=== PATIENT | female | born 1940 | race Asian ===

== ENCOUNTER 2017-01-21 19:25 | Inpatient (IN) | payer SELFPAY ==
--- NOTE | 2017-01-21 19:50 | CPEKG ---
Heart Rate: 103 RR Interval: 583 P-R Interval: 172 QRSD Interval: 130 QT Interval: 380 QTC Interval: 498 P [place]: 70 QRS [place]: -43 T Wave [place]: 102 EKG Severity - ABNORMAL ECG - EKG Impression: SINUS TACHYCARDIA EKG Impression: LEFT BUNDLE BRANCH BLOCK Electronically Signed By: Fern Mckeon 21-Jan-2017 21:54:57
--- NOTE | 2017-01-21 19:54 | EDPHY ---
H & P Stated Complaint: N/V/D and fever for 3 days Time Seen by Provider: 01/21/17 19:45 HPI/ROS: CHIEF COMPLAINT: Vomiting and shortness of breath Limitations: Speaks [place] only HISTORY OF PRESENT ILLNESS: This patient is an anticoagulated (Plavix) 76 y/o female arriving with her family complaining of cough, vomiting, and weakness onset three days ago. She is visiting from [facility] and arrived one week ago. 3 days ago, she initially complained of chest discomfort, SOB and fever, and began breathing rapidly and shallowly. She subsequently developed a cough. Today, she has been vomiting and has reduced oral intake, and is unable to keep down fluids such as Boost or Gatorade. She has been too weak to do any regular activities including sit up unassisted, which is unusual for her. She endorses muscle aches. She is taking Plavix, but she does not know why she is taking Plavix. No black or bloody stools, abdominal pain, diarrhea, urinary complaints, or other associated symptoms. Her family notes she has had pneumonia in the past. HPI primarily obtained from family members translating at bedside. REVIEW OF SYSTEMS: A 10 point review of systems was performed and is negative with the exception of the elements mentioned in the history of present illness - Medical/Surgical History PMH: 1. Diabetes mellitus 2. Hypertension - Social History Additional Social History: Visiting from [facility]. Family at bedside. - Physical Exam Exam: General Appearance: Pale, ill-appearing Eyes: Pupils equal and round, no conjunctival pallor or injection ENT, Mouth: Mucous membranes moist Neck: Normal inspection Respiratory: Lungs are clear to auscultation Cardiovascular: Tachycardic Gastrointestinal: Abdomen is soft and non- tender Neurological: A&O, nonfocal, normal gait Skin: Warm and dry, no rash Extremities: Nontender, no pedal edema Psychiatric: Mood and affect normal Constitutional: Initial Vital Signs Heart Rate 110 H 01/21/17 19:32 Respiratory Rate 20 01/21/17 19:32 Blood Pressure 133/54 H 01/21/17 19:32 O2 Sat (%) 63 L 01/21/17 19:32 O2 Delivery Mode Oxymizer O2 (L/minute) 10 Allergies/Adverse Reactions: No Known Allergies Allergy (Unverified 01/21/17 19:46) Home Medications: Medication Instructions Recorded Amlodipine Besylate [Norvasc] 5 mg PO DAILY 01/21/17 Clopidogrel Bisulfate [Clopidogrel] 75 mg PO DAILY 01/21/17 Losartan Potassium [Cozaar 50 mg 50 mg PO DAILY 01/21/17 (*)] Pantoprazole Sodium [Protonix 40mg 40 mg PO DAILY 01/21/17 (*)] Vitamin B Complex [B Complex] 1 each PO DAILY 01/21/17 metFORMIN HCL [Glucophage 850 mg 850 mg PO BIDMEAL 01/21/17 (*)] Medical Decision Making - Diagnostics EKG Interpretation: EKG interpreted by me reveals sinus tachycardia, rate 103, no ST/T changes. Imaging Results: Imaging Impressions Chest X-Ray 01/21/17 19:54 Impression: 1. Findings consistent with congestive heart failure/pulmonary edema. 2. Bilateral alveolar opacities are presumably cardiogenic in origin although superimposed pneumonia cannot be excluded. Chest/Thorax CTA 01/21/17 21:01 Impression: 1. No evidence of pulmonary embolic disease. 2. Findings consistent with congestive heart failure/pulmonary edema are noted. 3. Suspect underlying emphysema. 4. See above report for additional findings. Results called and discussed with Dr. Fern Mckeon on January 21, 2017 at 2227 hours. ED Course/Re-evaluation: 76 y/o female presents with 3 day history of weakness, vomiting, and cough. SpO2 63% on room air on arrival. Oxygen saturation in the mid 90s on 4 L by nasal cannula. Concerning for pneumonia versus pulmonary embolism. Hemoglobin critically low at 5.6. Rectal exam performed and reveals no yesy blood. The patient will require blood transfusion. Given her severe hypoxia, hemoglobin of 5 and the critical nature of her illness, I decided to give her O negative blood. Family was informed of the risks and benefits of this decision. lactate 4.9. Given likely pneumonia, IVF initated for septic shock. However, Chest x-ray independently reviewed by me reveals cardiomegaly and increased pulmonary vasculature versus diffuse pneumonia. IVF held, and ECHO ordered. Echocardiogram reveals normal LV function, moderate to severe MR and increased right heart pressure. Concerning for pulmonary embolism. CT pulmonary angiogram ordered. At this time, the D-dimer also returned markedly elevated at 8.3. CT pulmonary angiogram read by Dr. Palacios reveals pulmonary edema and cardiomegaly. No evidence of pulmonary embolism. Lasix 20 mg IV and nitro paste 1 inch applied. Troponin elevated, c/w ACS, likely occurred 3 days ago, given clinical history. ASA given. The patient looks and feels much better after the 1st unit of packed red blood cells. Unclear etiology of severe anemia , query whether severe anemia precipitated pulmonary edema and acute coronary syndrome. Also unclear if the mitral regurgitation is new or old. No old medical records available. Repeat hematocrit is pending. 21:[address] Tong, hospitalist. He accepts admission to the ICU. Differential Diagnosis: Differential diagnosis includes does not limited to septic shock, pneumonia, pulmonary embolism, pneumothorax, hemorrhagic shock, GI bleed. Critical Care Time: I spent a total of 45 minutes of critical care time in obtaining history, performing a physical exam, bedside monitoring of interventions, collecting and interpreting tests and discussion with consultants but not including time spent performing procedures. Organ at risk: Cardiac - Data Points Laboratory Results: Laboratory Results 01/21/17 19:46 01/21/17 19:46 01/21/17 01/21/17 01/21/17 20:50 20:20 19:46 WBC RBC Hgb Hct MCV MCH MCHC RDW Plt Count MPV Neut % (Auto) Lymph % (Auto) Morrison % (Auto) Eos % (Auto) Baso % (Auto) Nucleat RBC Rel Count Absolute Neuts (auto) Absolute Lymphs (auto) Absolute Monos (auto) Absolute Eos (auto) Absolute Basos (auto) Absolute Nucleated RBC Immature Gran % Seg Neutrophils % Band Neutrophils % Lymphocytes % Metamyelocytes % Immature Gran # Absolute Seg Neuts Absolute Band Neuts Absolute Lymphocytes Absolute Metamyelocyte Nucleated RBCs Platelet Estimate Hypochromasia Microcytic Cells Tear Drop Cells Oval Macrocytes Smear Review By D-Dimer VBG Lactic Acid Sodium Potassium Chloride Carbon Dioxide Anion Gap BUN Creatinine Estimated GFR Glucose Calcium NT-Pro-B Natriuret Pep 62694 pg/mL H pg/mL (0-450) Stool Occult Bld Scrn NEGATIVE (NEGATIVE) Patient ABO/Rh O POSITIVE Antibody Screen NEGATIVE Crossmatch IS Only See Detail 01/21/17 01/21/17 01/21/17 19:46 19:46 19:46 WBC 14.14 10^3/uL H 10^3/uL (3.80-9.50) RBC 1.82 10^6/uL L 10^6/uL (4.18-5.33) Hgb 5.6 g/dL L* g/dL (12.6-16.3) Hct 18.3 % L % (38.0-47.0) MCV 100.5 fL H fL (81.5-99.8) MCH 30.8 pg pg (27.9-34.1) MCHC 30.6 g/dL L g/dL (32.4-36.7) RDW 19.5 % H % (11.5-15.2) Plt Count 86 10^3/uL L 10^3/uL (150-400) MPV 12.0 fL H fL (8.7-11.7) Neut % (Auto) Not Reported Lymph % (Auto) Not Reported Morrison % (Auto) Not Reported Eos % (Auto) Not Reported Baso % (Auto) Not Reported Nucleat RBC Rel Count 4.2 % H % (0.0-0.2) Absolute Neuts (auto) Not Reported Absolute Lymphs (auto) Not Reported Absolute Monos (auto) Not Reported Absolute Eos (auto) Not Reported Absolute Basos (auto) Not Reported Absolute Nucleated RBC 0.59 10^3/uL H 10^3/uL (0-0.01) Immature Gran % Not Reported Seg Neutrophils % 79 % % Band Neutrophils % 10 % % Lymphocytes % 10 % % Metamyelocytes % 1 % % Immature Gran # Not Reported Absolute Seg Neuts 11.17 10^/uL H 10^/uL (1.70-6.50) Absolute Band Neuts 1.41 10^3/uL H 10^3/uL (0.00-0.70) Absolute Lymphocytes 1.41 10^3/uL 10^3/uL (1.00-3.00) Absolute Metamyelocyte 0.14 10^3/mL H 10^3/mL (0.00-0.00) Nucleated RBCs 5 /100 WBC H /100 WBC (0-0) Platelet Estimate DECREASED L (ADEQ) Hypochromasia 2+ H Microcytic Cells 2+ H Tear Drop Cells 1+ H Oval Macrocytes 1+ H Smear Review By Pending D-Dimer 8.30 ug/mLFEU H ug/mLFEU (0.00-0.50) VBG Lactic Acid Sodium 140 mEq/L mEq/L (134-144) Potassium 4.7 mEq/L mEq/L (3.5-5.2) Chloride 109 mEq/L mEq/L (97-110) Carbon Dioxide 14 mEq/l L mEq/l (22-31) Anion Gap 17 mEq/L H mEq/L (8-16) BUN 28 mg/dL H mg/dL (7-23) Creatinine 1.3 mg/dL H mg/dL (0.6-1.0) Estimated GFR 40 Glucose 111 mg/dL H mg/dL (70-100) Calcium 9.7 mg/dL mg/dL (8.5-10.4) NT-Pro-B Natriuret Pep Stool Occult Bld Scrn Patient ABO/Rh Antibody Screen Crossmatch IS Only 01/21/17 19:46 WBC RBC Hgb Hct MCV MCH MCHC RDW Plt Count MPV Neut % (Auto) Lymph % (Auto) Morrison % (Auto) Eos % (Auto) Baso % (Auto) Nucleat RBC Rel Count Absolute Neuts (auto) Absolute Lymphs (auto) Absolute Monos (auto) Absolute Eos (auto) Absolute Basos (auto) Absolute Nucleated RBC Immature Gran % Seg Neutrophils % Band Neutrophils % Lymphocytes % Metamyelocytes % Immature Gran # Absolute Seg Neuts Absolute Band Neuts Absolute Lymphocytes Absolute Metamyelocyte Nucleated RBCs Platelet Estimate Hypochromasia Microcytic Cells Tear Drop Cells Oval Macrocytes Smear Review By D-Dimer VBG Lactic Acid 4.9 mmol/L H mmol/L (0.7-2.1) Sodium Potassium Chloride Carbon Dioxide Anion Gap BUN Creatinine Estimated GFR Glucose Calcium NT-Pro-B Natriuret Pep Stool Occult Bld Scrn Patient ABO/Rh Antibody Screen Crossmatch IS Only Medications Given: Discontinued Medications Sodium Chloride (Ns) 1,000 mls @ 0 mls/hr IV ONCE ONE; Wide Open PRN Reason: Protocol Stop: 01/21/17 19:56 Last Admin: 01/21/17 20:08 Dose: 1,000 mls Sodium Chloride (Ns) 2,000 mls @ 4,000 mls/hr 30 ml/kg infuse over 30 min ( 2000 ml) IV EDNOW ONE PRN Reason: Protocol Stop: 01/21/17 20:40 Last Admin: 01/21/17 20:33 Dose: 2,000 mls Ondansetron HCl (Zofran) 4 mg IVP EDNOW ONE Stop: 01/21/17 19:56 Last Admin: 01/21/17 20:08 Dose: 4 mg Departure - Departure Disposition: [facility] Inpatient Acute Clinical Impression: Severe mitral regurgitation, Severe anemia Pulmonary edema Qualifiers: Chronicity: acute Qualified Code(s): J81.0 - Acute pulmonary edema Condition: Serious Report Scribed for: Fern Mckeon Report Scribed by: Lindsay Cochran Date of Report: 01/21/17 Time of Report: 20:00 Physician Review and Approval Statement: 01/21/17 20:00 Portions of this note were transcribed by a medical dermatologist. I personally performed a history, physical exam, medical decision making, and confirmed accuracy of information the transcribed note.
[2017-01-21] MEDS ORDERED: NS 1,000 ML IV ONE (19:55)
[2017-01-21] MEDS ORDERED: ONDANSETRON 4 MG/2 ML VIAL IVP ONE (19:55)
[2017-01-21 20:01] LABS: ABSOLUTE NRBC COUNT 0.59 10^3/uL (0-0.01); ADD DIFF? YES; ADD MORPH? YES; ATYPICAL LYMPHOCYTE FLAG 60 (0-99); FRAGMENT RBC FLAG 40 (0-99); HEMATOCRIT 18.3 % (38.0-47.0); LIPEMIA HEMOLYSIS FLAG 80 (0-99); MEAN CELL HEMOGLOBIN 30.8 pg (27.9-34.1); MEAN CELL HEMOGLOBIN CONCENTR. 30.6 g/dL (32.4-36.7); MEAN CELL VOLUME 100.5 fL (81.5-99.8); PLATELET CLUMPS FLAG 0 (0-99); PLATELET COUNT 86 10^3/uL (150-400); RED BLOOD CELL COUNT 1.82 10^6/uL (4.18-5.33); RED CELL DISTRIBUTION WIDTH 19.5 % (11.5-15.2)
[2017-01-21 20:06] LABS: LEFT SHIFT FLG 160 (0-99); NRBC-AUTO% 4.2 % (0.0-0.2)
[2017-01-21 20:07] LABS: ADD SCAN? NO; HEMOGLOBIN 5.6 g/dL (12.6-16.3)
[2017-01-21] MEDS ORDERED: NS 2,000 ML IV ONE (20:11)
[2017-01-21 20:14] LABS: ANION GAP 17 mEq/L (8-16); CALCIUM 9.7 mg/dL (8.5-10.4); CARBON DIOXIDE 14 mEq/l (22-31); CHLORIDE 109 mEq/L (97-110); CREATININE 1.3 mg/dL (0.6-1.0); GLOMERULAR FILTRATION RATE 40; GLUCOSE 111 mg/dL (70-100); POTASSIUM 4.7 mEq/L (3.5-5.2); SODIUM 140 mEq/L (134-144)
[2017-01-21 20:57] LABS: LACGHOST ORDER
[2017-01-21] MEDS ORDERED: IOPAMIDOL (ISOVUE 370) 100 ML BTL IV ONE (21:05)
[2017-01-21 21:06] LABS: HYPOCHROMIA 2+; MACROCYTES 1+; MICROCYTES 2+; PLATELET ESTIMATE DECREASED (ADEQ)
[2017-01-21 22:32] LABS: TROPONIN I 0.167 ng/mL (0.000-0.034)
[2017-01-21] MEDS ORDERED: FUROSEMIDE 20 MG/2 ML VIAL IVP ONE (22:34)
[2017-01-21] MEDS ORDERED: NITROGLYCERIN 2% 1 GM PACKET TP ONE (22:35)
[2017-01-21] MEDS ORDERED: ASPIRIN 81 MG CHEWABLE TAB PO ONE (22:42)
[2017-01-21 23:08] LABS: HEMATOCRIT 19.9 % (38.0-47.0); MEAN CELL HEMOGLOBIN 30.7 pg (27.9-34.1); MEAN CELL HEMOGLOBIN CONCENTR. 31.2 g/dL (32.4-36.7); MEAN CELL VOLUME 98.5 fL (81.5-99.8); RED BLOOD CELL COUNT 2.02 10^6/uL (4.18-5.33); RED CELL DISTRIBUTION WIDTH 17.9 % (11.5-15.2)
[2017-01-21 23:10] LABS: HEMOGLOBIN 6.2 g/dL (12.6-16.3)
[2017-01-22] MEDS ORDERED: ACETAMINOPHEN 650 MG SUPP PR PRN (00:16)
[2017-01-22] MEDS ORDERED: ONDANSETRON 4 MG/2 ML VIAL IVP PRN (00:16)
[2017-01-22] MEDS ORDERED: ALBUTEROL 3 ML DEYVIAL IH PRN (00:16)
--- NOTE | 2017-01-22 00:20 | CPEKG ---
Heart Rate: 94 RR Interval: 638 P-R Interval: 192 QRSD Interval: 134 QT Interval: 400 QTC Interval: 501 P [place]: 77 QRS [place]: -52 T Wave [place]: 90 EKG Severity - ABNORMAL ECG - EKG Impression: SINUS RHYTHM EKG Impression: LBBB Electronically Signed By: Reji Brown 22-Jan-2017 10:35:28
[2017-01-22] MEDS ORDERED: NITROGLYCERIN 0.4 MG BTL SL PRN (00:24)
[2017-01-22] MEDS: PANTOPRAZOLE SODIUM 40 MG in NS 100 ML IV SCH ×3 (00:43→21:04)
[2017-01-22 01:34] LABS: COLOR YELLOW; LEUKOCYTE ESTERASE,URINE NEGATIVE (NEGATIVE); NITRITE,URINE NEGATIVE (NEGATIVE)
[2017-01-22] MEDS ORDERED: FUROSEMIDE 20 MG/2 ML VIAL IV ONE (02:15)
--- NOTE | 2017-01-22 02:33 | GHP ---
[f rep st] HISTORY AND PHYSICAL DATE OF ADMISSION: 01/21/2017 SOURCE: Patient is able to provide most of the history. Majority is obtained by discussing with the patient's surrounding family members at bedside, as the patient is primarily Albanian-speaking, but does understand some Czech. CHIEF COMPLAINT: Fevers, cough, vomiting, and shortness of breath. HISTORY OF PRESENT ILLNESS: A very pleasant 76-year-old female with past medical history significant for GERD with remote history of peptic ulcer disease , hypertension, diabetes type 2, who presents to the emergency department today with multiple complaints. Primarily, 3-day history of fevers, cough, and vomiting. Patient arrived with multiple family members from [facility] to visit some local family in [place]. Approximately 3 days ago, the patient and her family went up into altitude over 8000 feet. At that time of their visit, patient started to complain of some left-sided chest pressure with radiation to her left arm. She also had noted increased work of breathing and complaints of some shortness of breath. She also developed fever, cough with vomiting. The patient had not noted to her family members regarding the change in stool color , but she states that 3 days ago, she did have black-colored stools. In the last few days, within her emesis, the patient's granddaughter noted that she did see some small areas of coffee-grounds mixed in with mucus and emesis. She had no yesy hematemesis or bright red blood per rectum. The patient has had persistent shortness of breath. No lower extremity swelling. No orthopnea. Cough has been nonproductive. The patient does complain of some sore throat to include more like water brash type sensation and GERD. There are no known sick contacts at home. However, again, patient had [place] Additionally, patient has been complaining of some myalgias, but no acute joint pain. No acute changes in vision. No lightheadedness. No palpitations. Patient has noted some epigastric pain but no abdominal distention. Per the family, however, the patient does have a history of left-sided chest pain with radiation to her shoulder. When asked, patient states that the pain she experienced on Wednesday was not significantly different. Patient had this pain evaluated before coming to the [place] and was reported to have been diagnosed with musculoskeletal pain. The patient also has a known history of anemia, which was diagnosed prior to her arrival. The patient's grandson at bedside reports that patient's last hemoglobin was just above 8. She has never had a colonoscopy. The patient does have a previous remote diagnosis of peptic ulcer disease and is on Protonix daily for GERD. Additionally, patient does have a history of chronic loose, diarrhea type stools, possibly related to her metformin. The patient has had more watery stools and, again, as noted above, when I asked her directly regarding any melenic stools, she reported yes, but not reported previously to her family. REVIEW OF SYSTEMS: GENERAL: Positive for fevers, chills. No sweats. Decreased appetite and poor oral hydration. SKIN: Patient denies any rashes or sores. HEME: Patient denies any easy bruising or bleeding. ENT: Patient is complaining of a little bit of itchy, scratchy throat, more like reflux type sensation. No rhinorrhea. EYES: Patient denies any acute changes in vision or ocular pain. She does wear glasses. CARDIOVASCULAR: Patient with complaints of chest pain as noted above in HPI. No palpitations. No previous history of CHF. RESPIRATORY: Positive for cough, shortness of breath. GI: See HPI. : No dysuria or hematuria. The patient is complaining of having to urinate frequently, status post receiving Lasix in the ER. MUSCULOSKELETAL: The patient denies any joint or myalgias at time of interview, though previously had some at home. NEURO: Morning headache, now resolved. No numbness or tingling or focal weakness. PSYCH: Patient denies any mood changes. Remainder of review of systems negative except as above. ALLERGIES: No known drug allergies. HOME MEDICATIONS: Vitamin B complex 1 tab p.o. daily, Protonix 40 mg p.o. daily , losartan 50 mg p.o. daily, amlodipine 5 mg p.o. daily, clopidogrel 75 mg p.o. daily, metformin 850 mg p.o. twice daily. PAST MEDICAL HISTORY: Significant for GERD with remote history of peptic ulcer disease diagnosis. Benign essential hypertension, diabetes type 2. Patient is currently on Plavix for stroke prevention. No previous history of IA, CAD, or stroke per the family. PAST SURGICAL HISTORY: Significant for open cholecystectomy, cataract extraction and lens placement. FAMILY HISTORY: Grandfather and mother with diabetes. A family history of hypertension. No family history of thalassemias or anemias. No hypercoagulable states or history of DVT, PEs in the family. SOCIAL HISTORY: Patient is visiting from [facility] with her family. They are staying with local [place] residents, family members. The patient does not smoke, drink, or do drugs. CODE STATUS: Full. The patient does not have advanced directive in place, but along with the patient and her family, they have elected her grandson to act as proxy at this time. PHYSICAL EXAM: VITAL SIGNS: Upon arrival to the ER, blood pressure 133/54, heart rate 110, respiratory rate 20, O2 saturation 63% on room air. Vitals at time of interview: Temperature 36.9, blood pressure 134/78, heart rate 96, respiratory rate 23, O2 saturation 99% on 8 L on OxyMask. GENERAL: The patient is without any acute distress. She is lying flat on her hospital bed. She is awake, alert, and oriented x3. Multiple family members at bedside. HEAD : Normocephalic, atraumatic. EYES: Extraocular muscles grossly intact. Pupils equal, round and symmetric. No scleral icterus or conjunctival injection. SKIN: Patient with a few bruises on her arms at site of venipuncture, but no large hematomas elsewhere. She does appear pale. ENT: Patient's mucous membranes appear moist. No oropharyngeal erythema or exudates. NECK: Supple. Trachea midline. CARDIOVASCULAR: Patient with tachycardia in the 90s to 100. No murmurs, rubs, or gallops appreciated. CHEST : Patient without any chest wall tenderness to palpation. RESPIRATORY: Patient with some slight increased work of breathing, particularly with movement. She has coarse breath sounds in all lung parkinson. No wheezing or rhonchi appreciated. ABDOMEN: Positive bowel sounds. Soft. Patient does complain of some mild tenderness to palpation in the epigastric region. No rebound or guarding. Nondistended abdomen. : No Lea in place. No suprapubic tenderness to palpation. No CVA tenderness. MUSCULOSKELETAL: Patient is able to sit up independently. Moves all extremities with strength grossly normal. NEURO: Cranial nerves grossly nonfocal, limited secondary to patient's language barrier. No focal weakness. Moves all extremities. She is oriented to person, place. PSYCH: The patient is pleasant, cooperative. Mood , affect appropriate. LABORATORY STUDIES: WBC is 14.4, H and H 5.6 and 18.3, MCV of 100.5, platelet count of 86,000. Retic count 4.2, no bands, absolute segs slightly elevated, multiple nucleated RBCs, decreased platelets, hypochromasia, microcytic cells, teardrop cells, oval macrocytes with smear review pending. Repeat CBC: Hemogram showed WBC is 10.0, H and H are 6.2 and 19.9, MCV 98.5, platelet count 73. This is following 1 unit of O-negative blood from the emergency department. D-dimer is 8.3. Initial lactic acid 4.9, repeated was 1.5. Sodium 140, potassium 4.7, chloride 109, CO2 is 14, anion gap 17, BUN 28, creatinine 1.3, GFR 40, glucose 111, calcium 9.7. BNP is 15,200. Troponin 0.167. Flu negative. Occult blood screen was negative. Blood cultures x2 pending. EKG: Initial reviewed by myself shows sinus tachycardia with a left bundle branch block and QTc about 500. A repeated EKG, also reviewed by myself, shows sinus rhythm with interventricular conduction delay consistent with similar left bundle branch block seen previously. Chest x-ray image and report reviewed by myself, pronounced cardiomegaly in association with pulmonary venous congestion with peribronchial cuffing seen bilaterally and bilateral alveolar opacities, more pronounced in the perihilar regions. No definitive focal pulmonary consolidation. No pleural effusions are seen. Minimal bibasilar atelectasis is suspected and elevation of the right hemidiaphragm is noted. CTA of the chest report reviewed, showing cardiomegaly with pulmonary venous congestion. Bilateral pleural effusions, right greater than left. Bibasilar atelectasis. Extensive bilateral perihilar opacities noted. Scattered emboli noted, suggesting emphysema. Upper abdomen negative for acute abnormalities. CT angio negative for acute or chronic PE. No vascular malformations. ASSESSMENT AND PLAN: This is a very pleasant 76-year-old female who presents initially with complaints of several days of fevers, nausea, vomiting, and cough with recent arrival from [facility] in the past week. The patient noted to have acute hypoxia and severe anemia with, based on history, complaints of some melena. 1. Acute respiratory failure with hypoxia. Patient's O2 saturations are improved but she still continues to require high concentrations of oxygen supplementation. The patient will be further transfused along with inter- transfusion diuresis with Lasix, given patient's pulmonary edema. By report, an urgent echocardiogram was done in the ER which showed a normal ejection fraction. Will await the results of that echocardiogram. Clinically, patient appears to have a congestive heart failure type picture with cardiomegaly, pulmonary edema ddx related to anemia vs. altitude vs. viral cardiomyopathy, pulmonary HTN. It is unclear at this time if the patient may have suffered an acute cardiac event [place], as she did complain of some chest pain with radiation to her left arm. Her troponins are slightly elevated, but this could represent demand ischemia or type 2 myocardial infarction in setting of severe hypoxia with her pulmonary edema. The patient has also had ongoing anemia with progressive decline in her hemoglobin and hematocrit acutely. Also , considerations including high altitude pulmonary edema. The patient at home in [facility] lives approximately 8000 feet elevation and came directly to [place] to visit family, but had recent increase in elevation after being in the [facility] for 2-3 days. 2. Pulmonary edema. Diuresis. Await echocardiogram. Further plan as noted above. 3. Severe anemia, concerning for possibly chronic blood-loss anemia versus an acute on chronic picture. Patient with negative stool screen at this time, but with reported history of some spotty coffee-ground emesis and melenic stools for the last several days. The patient will continue with transfusions. Further evaluation for hemolytic anemia, considered less likely, and anticipate a discussion with Gastroenterology in the morning. However, patient reports that she is quite anxious to consider an esophagogastroduodenoscopy; however, did discuss with her and the family regarding her previous history of peptic ulcer disease. There is concern that there is upper gastrointestinal bleeding instigating multiple symptoms. 4. Melena. Plan as above. 5. Systemic inflammatory response syndrome. Patient with tachycardia, tachypnea, leukocytosis, elevated lactate, has not had any hypotension. Her lactate has normalized. Leukocytosis has resolved following transfusion and diuresis. There are no consolidations on the CT scan. It shows more of an emphysematous picture, and no consolidations on imaging for an outright diagnosis of pneumonia. However, given her emphysema findings, will add coverage with Rocephin. We will try to avoid QT prolonging agents, given her QTc is already 500. 6. Peptic ulcer disease and history of gastroesophageal reflux disease. We will give the patient a dose of Protonix 40 twice daily, pending Gastroenterology evaluation tomorrow. 7. Epigastric pain. The patient relatively comfortable at this time. She will be nil per os except for some clears this evening and then completely nil per os. 8. Benign essential hypertension. Blood pressure is mildly elevated but acceptable at this time. Will leave some hydralazine intravenously available as needed. Additionally, patient will be given Lasix. Will monitor her blood pressures. 9. Diabetes type 2. Low-dose sliding scale for now. Holding metformin, given her elevated lactate. 10. Hyperlipidemia. Holding statins. Resume once diet is advanced. 11. LBBB - unknown chronicity. monitoring troponin. no c/o chest pain at current time. 12. thrombocytopenia - unknown chronicity. pt on plavix therapy. no pancytopenia although patient is anemic. 13. Fluid, electrolyte, nutrition. Patient will be fluid restricted. Saline lock intravenously, except for medications and transfusion. She will be given Lasix intermittently, we will monitor electrolytes and replace if needed. Again , she will have some sips of clears and then will be nil per os. 14. Prophylaxis. Sequential compression devices only. Proton pump inhibitor for gastrointestinal prophylaxis, holding anticoagulation in setting of concern for a gastrointestinal bleed as well as her thrombocytopenia, chronicity of which is unknown, so this could be possibly related to her acute illness. 15. Code status: Discussed with the patient as well as her family. She desires to be a full code. Her grandson is to act as proxy. 16. Disposition: Patient has been admitted to inpatient status in the intensive care unit for close monitoring, transfusion, anemia, and her acute respiratory failure. /[id number]/MODL MTDD
[2017-01-22] MEDS ORDERED: FUROSEMIDE 20 MG/2 ML VIAL IVP ONE (04:15)
[2017-01-22 04:30] LABS: LACTATE DEHYDROGENASE 2860 IU/L (313-618)
[2017-01-22 05:29] LABS: ABSOLUTE NRBC COUNT 0.66 10^3/uL (0-0.01); ADD DIFF? YES; ATYPICAL LYMPHOCYTE FLAG 40 (0-99); FRAGMENT RBC FLAG 20 (0-99); HEMOGLOBIN 9.2 g/dL (12.6-16.3); LIPEMIA HEMOLYSIS FLAG 80 (0-99); MEAN CELL HEMOGLOBIN 30.9 pg (27.9-34.1); MEAN CELL HEMOGLOBIN CONCENTR. 32.9 g/dL (32.4-36.7); MEAN PLATELET VOLUME 12.3 fL (8.7-11.7); PLATELET CLUMPS FLAG 0 (0-99); PLATELET COUNT 81 10^3/uL (150-400); RED BLOOD CELL COUNT 2.98 10^6/uL (4.18-5.33); RED CELL DISTRIBUTION WIDTH 17.4 % (11.5-15.2)
[2017-01-22 05:44] LABS: ADD MORPH? NO; ADD SCAN? NO; LEFT SHIFT FLG 160 (0-99); NRBC-AUTO% 5.4 % (0.0-0.2)
[2017-01-22 05:54] LABS: ALANINE AMINOTRANSFERASE 767 IU/L (9-52); ALBUMIN 3.3 g/dL (3.5-5.0); ALKALINE PHOSPHATASE 72 IU/L (38-126); ANION GAP 13 mEq/L (8-16); BILIRUBIN,TOTAL 1.8 mg/dL (0.1-1.4); CALCIUM 9.4 mg/dL (8.5-10.4); CARBON DIOXIDE 19 mEq/l (22-31); CHLORIDE 108 mEq/L (97-110); CREATININE 1.1 mg/dL (0.6-1.0); GLOMERULAR FILTRATION RATE 48; GLUCOSE 91 mg/dL (70-100); MAGNESIUM 1.6 mg/dL (1.6-2.3); POTASSIUM 4.1 mEq/L (3.5-5.2); SODIUM 140 mEq/L (134-144); TOTAL PROTEIN 9.5 g/dL (6.3-8.2)
[2017-01-22 06:00] LABS: TROPONIN I 0.247 ng/mL (0.000-0.034)
[2017-01-22 06:05] LABS: ASPARTATE AMINOTRANSFERASE 948 IU/L (14-46)
[2017-01-22 06:13] LABS: CREATINE KINASE-MB FRACTION 1.98 ng/mL (0.00-3.19)
[2017-01-22 06:29] LABS: PLATELET ESTIMATE DECREASED (ADEQ)
[2017-01-22 06:31] LABS: HYPOCHROMIA 2+; MACROCYTES 1+; MICROCYTES 2+
--- NOTE | 2017-01-22 08:42 | HOSPPROG ---
Hospitalist Progress Note Assessment/Plan: Night Float Note Spoke with Dr. Hall for GI consultation. Consider respiratory stabilization and transfusion before proceeding with EGD in the next few days but he will see patient in the ICU. Objective: Vital Signs Temp Pulse Resp BP Pulse Ox 36.8 C 91 20 146/56 H 93 01/22/17 04:00 01/22/17 08:00 01/22/17 08:00 01/22/17 08:00 01/22/17 08:00 Laboratory Results 01/22/17 05:05 01/22/17 05:05 01/21/17 01/22/17 01/23/17 05:59 05:59 05:59 Intake Total 2636 Output Total 2200 1250 Balance 436 -1250 ICD10 Worksheet Patient Problems: Problems Problem Status Onset Pulmonary edema Acute Severe anemia Acute Severe mitral regurgitation Acute
--- NOTE | 2017-01-22 09:40 | CPEKG ---
Heart Rate: 93 RR Interval: 645 P-R Interval: 180 QRSD Interval: 132 QT Interval: 404 QTC Interval: 503 P [place]: 77 QRS [place]: -49 T Wave [place]: 111 EKG Severity - ABNORMAL ECG - EKG Impression: SINUS RHYTHM EKG Impression: LEFT BUNDLE BRANCH BLOCK Electronically Signed By: Reji Brown 22-Jan-2017 10:35:12
--- NOTE | 2017-01-22 10:08 | PDMN ---
Medical Necessity Medical necessity: Patient meets INPT criteria per [facility] M-190 Heart Failure ( acute resp failure w/hypoxia/pulm edema/severe anemia/SIRS presents w/increased work to breathe/3 days fevers, cough, vomiting; sat 63% on RA; tachy at 110; leukocytosis/WBC > 18,000, lactate 4.9; hx PUD, HTN, type 2 DM, poss COPD; anticipated LOS > 2 midnights for transfusions, IV antibiotics, CHF mgmt.)
--- NOTE | 2017-01-22 10:41 | HOSPPROG ---
Hospitalist Progress Note Assessment/Plan: 76 yo F w h/o gewrd admitted w cp, recent h/o melena and acute blood loss anemia anemia: presumed gi losses on bid ppi hold plavix GI has seen; warrants endoscopy to further eval follow hct bid CV: NSTEMI suspected 2/2 to anemia follow trop to peak chronicity og LBBB unknown hold antiplatelets given above echo pending NSVT: limited amount follow await echo acute chf: suspect acute dCHF given severe anemia diurese today elevated LFT's: ? shock non obstructive await u/s dispo: full code proph: scd's Subjective: case d/w laurie manley, kim. tele: 5 beats NSVT (interp by me). ekg w LBB, stable trough two ekg's (interp by me) Objective: Vital Signs Temp Pulse Resp BP Pulse Ox 36.8 C 94 24 H 144/57 H 92 01/22/17 04:00 01/22/17 09:00 01/22/17 09:00 01/22/17 09:00 01/22/17 09:00 Laboratory Results 01/22/17 05:05 01/22/17 05:05 01/21/17 01/22/17 01/23/17 05:59 05:59 05:59 Intake Total 2636 Output Total 2200 1250 Balance 436 -1250 - Physical Exam Constitutional: no apparent distress, appears nourished Eyes: PERRL, anicteric sclera Ears, Nose, Mouth, Throat: moist mucous membranes, hearing normal Cardiovascular: regular rate and rhythym, no murmur, rub, or gallop, tachycardia Respiratory: no respiratory distress, no rales or rhonchi, other (crackles anterolat) Gastrointestinal: normoactive bowel sounds, soft, non-tender abdomen, No mccann' s sign Genitourinary: no bladder fullness, No lala in urethra Skin: warm, normal color Musculoskeletal: full muscle strength, no muscle tenderness Neurologic: AAOx3 Psychiatric: interacting appropriately ICD10 Worksheet Patient Problems: Problems Problem Status Onset Pulmonary edema Acute Severe anemia Acute Severe mitral regurgitation Acute
--- NOTE | 2017-01-22 12:40 | GCON ---
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 HISTORY OF PRESENT ILLNESS: The patient is a 76-year-old female with an extensive past medical histo ry including gastroesophageal reflux disease, hypertension, noninsulin diabetes. She is originally f rom [facility], as she has had 3 day history of fever, cough, and vomiting. She was having complaints of some left-sided chest pressure as well, and markedly worsening breathlessness. She was subsequently seen in the emergency room, was admitted to the intensive care unit with evidence of pulmonary edema. Echocardiogram currently pending. Currently, she is resting comfortably and complains of being hun gry. PAST MEDICAL HISTORY: Again, significant for gastroesophageal reflux disease, hypertension, and diab etes. ALLERGIES: No known allergies to medications. SOCIAL HISTORY: No history of tobacco use. No history of alcohol use. She is visiting from [facility]. She is full code. MEDICATIONS: At home include vitamin B, Protonix, losartan, amlodipine, clopidogrel, and metformin. PHYSICAL EXAMINATION: VITAL SIGNS: Blood pressure is 134/90, pulse 93, respirations 26, afebrile, o xygen saturation 96% on 5 L. GENERAL: She is a well-developed, elderly female, who is resting comfo rtably, in no acute distress. She looks younger than her stated age. HEENT: Eyes are PERRLA, EOMI. Throat shows no erythema or tonsillar hypertrophy. NECK: Supple. No cervical adenopathy. HEART: Regular rate and rhythm, with a 2/6 systolic murmur at left sternal border without radiation. LUNG S: Showed diminished breath sounds and bibasilar rales. ABDOMEN: Soft, nontender. Bowel sounds ar e present in all 4 quadrants. EXTREMITIES: No clubbing, cyanosis, or edema. LABORATORIES: White count 12.3, hemoglobin 9.2, hematocrit 28, platelet count is 81. Sodium 140, po tassium is 4.1, chloride 108, CO2 is 19, BUN 27, creatinine 1.1. Glucose is 91. BNP is elevated at 15,200. Chest x-ray: Shows cardiomegaly, diffuse pulmonary edema. No pleural effusions are appreciated. IMPRESSION: 1. Acute respiratory failure, etiology of which is unclear, though, congestive heart failure appears to be most likely. 2. Pulmonary edema. 3. Anemia. 4. History of peptic ulcer disease. 5. History of hypertension. 6. Diabetes. RECOMMENDATIONS: 1. Aggressive diuresis. 2. Agree with echocardiogram. 3. Cardiology to see. 4. Aggressive blood sugar control. 5. Aggressive blood pressure control. 6. PT and OT. 7. Out of bed. /[id number]/MODL
--- NOTE | 2017-01-22 14:00 | GCON ---
[f rep st] CONSULTATION DATE OF CONSULTATION: 01/22/2017 REFERRING PHYSICIAN: Mary Gibbs MD CHIEF COMPLAINT: Melena, anemia. HISTORY OF PRESENT ILLNESS: Thank you very kindly for asking me to evaluate your patient in consulta tion for a chief complaint of melena. She is a 76-year-old female from [facility] who was visiting her re latives in [place] and was admitted with chest pain and shortness of breath. She has also been desc ribed as having dark bowel movements about 3 days ago. She is thrombocytopenic, anemic and with a hi gher white count on admission. She has been having significant cardiovascular problems since admissi on, including episodes of nonsustained asymptomatic ventricular tachycardia. 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 She has had an echocardiogram done recently that showed reasonable systolic function. Her hematocrit was noted to b e significantly anemic on admission with a hemoglobin of 5.6, hematocrit of 18.3, and a platelet coun t of 86. Her white count was 14.1. The patient does have a reported history of previous peptic ulcer disease. She was planning to have a colonoscopy in [facility] but has never had one before. I am not aware of her being known to have anemi a or cardiac disease prior to her visit here in the [facility]. She does not speak Greenlandic and the only history I can obtain is from her grandson who is at the bedside and from the history and physical not es of Dr. Tong. She has not had any melena or hematemesis since admission. She has been transfuse d and her hematocrit is 28 this morning, with a hemoglobin of 9.2. She continues to have cardiovascu lar lability with episodes of V-tach. She denies any chest pain. Medical history taken mostly from Dr. Tong's admission note. PAST MEDICAL HISTORY: Significant for peptic ulcer disease, chronic heartburn, diabetes, hypertensio n. PAST SURGICAL HISTORY: Significant for cholecystectomy, cataract surgery. FAMILY HISTORY: Noted for diabetes, hypertension. No history of anemia. SOCIAL HISTORY: The patient lives in [facility], she is visiting relatives here in [place]. No tobacco, alcohol or substance abuse. REVIEW OF SYSTEMS: Not able to obtain from the patient. Her children report that she has been short of breath, experiencing chest pain that has been radiating into her left arm. She has been reportin g urinary frequency. She has been reporting fever and cough. She has reportedly had some episodes o f vomiting that have been somewhat dark in color, perhaps coffee-ground description. No yesy hemate mesis, no bright red hematochezia. The reports of melena were from 3 days ago and said her stool was somewhat dark. She also reports having heartburn that, according to Dr. Tong's note, is described as sour bitter reflux. MEDICATIONS: On admission include B vitamin, Protonix 40 mg daily, losartan 50 mg daily, amlodipine 5 mg daily, clopidogrel 75 mg daily reportedly for stroke prevention, metformin 850 mg twice daily. ALLERGIES: None known. PHYSICAL EXAM: VITAL SIGNS: Blood pressure 146/56, pulse is 90 to 95 and regular, respirations are between 20 and 24, oxygenation is 92% on 4 L nasal cannula. GENERAL: Ill-appearing female. No acut e distress. Seems very fatigued. She is arousable and, according to her daughter, communicates norm ally in Cuban. HEENT: Neck is supple. Oropharynx is clear. Nares are without blood. Sclerae a re anicteric. PULMONARY: Coarse breath sounds with rales at the bases. Poor air exchange. CARDIOV ASCULAR: Tachycardia with systolic murmur at the left border. GI: Abdomen is soft and nondistended . Bowel sounds are normal. No tenderness, rebound, guarding, bruit or ascites. No palpable mass. EXTREMITIES: No joint deformity, swelling or warmth. No edema. DERMATOLOGIC: No jaundice or appre ciable rash. NEUROLOGIC: According to the granddaughter, the patient is alert and oriented. She mo ves all extremities normally. LABORATORY: Today's labs reveal a white count of 12.3, hematocrit 28.0, MCV is 94, platelets are 81. Chemistries: Sodium 140, potassium 4.1, chloride 109, bicarbonate 19, BUN is 27 with a creatinine of 1.1, glucose 91, AST is 948, ALT is 767, total bilirubin is 1.8, alkaline phosphatase is 72, LDH is 2860, troponin is 0.247. BNP is 15,200. Albumin 3.3, total protein 9.5. TSH is 1.7. IMPRESSION: 1. Anemia, normocytic. 2. Melena. 3. Fever. 4. Shortness of breath. 5. Possible cardiomyopathy. 6. Elevated transaminases with mild cholestasis. 7. Thrombocytopenia. RECOMMENDATIONS: 1. Conservative management for now. I do not believe that she is in good medical shape to undergo e ndoscopic evaluation for this recent melena. It is likely that her anemia is, in some component, mul tifactorial given it is normocytic and with thrombocytopenia. Nonetheless, the bleeding component sh ould be interrogated with endoscopy but again I would prefer that she have a better cardiovascular st ate to undergo endoscopy as it seems somewhat non emergent at this juncture. 2. Continue to monitor her hematocrit and transfuse for hematocrit less than 25 to help her cardiopu lmonary status. 3. Given her elevated liver function tests and a history of cholecystectomy, I would recommend right upper quadrant ultrasound. The cause of her transaminase elevations could be explained by an ischem ic issue given that she has come in with significant anemia and fatigue and does have possible cardio myopathy. I would simply do the ultrasound and monitor her liver function tests for now and see what the trend is. In an ischemic hepatitis, these should improve. 4. I would also recommend a Doppler ultrasound at the time to exclude a hepatic or portal vein throm bosis as a complicating feature for her transaminitis. 5. Hepatitis C antibody and hepatitis B surface antigen to exclude chronic viral hepatitis as a cont ributing feature. 6. Hold Plavix. 7. Continuous proton pump inhibitor for now. 8. In regard to evaluation of her anemia, ideally an upper endoscopy and colonoscopy could be perfor med. This would likely spare her another anesthesia event. This would also accommodate her having h er colonoscopy done which sounds like it was being planned for when she returned home in [facility]. I th ink given the severity of her global illness and anemia, if she is going to undergo anesthesia it wou ld be best to do both together. The grandson is unclear whether he would like to have this done but will discuss it with the patient's son in [facility] who is a physician there. 9. For now, medical management, the liver evaluation, monitor hematocrit, supportive care with trans fusion, and proton pump inhibitors. Will re-evaluate the need and appropriateness of endoscopic eval uation depending on her medical stability and course. /[id number]/MODL
--- NOTE | 2017-01-22 14:48 | ASMTCMCOM ---
CM Note CM Note Notes: Chart reviewed. Am rounds. Patient is mainly Nepalize speaking and is here from [facility] visiting her grandson. Gastroenterology consulted, medical management recommended at this point. Grandson is proxy at this point in time. Discharge needs TBD. CM to follow. Date Signed: 01/22/2017 02:47 PM Electronically Signed By:Frances Newman RN
[2017-01-22] MEDS: FUROSEMIDE 40 MG/4 ML VIAL IVP SCH (16:10)
[2017-01-22 17:57] LABS: HEMATOCRIT 27.3 % (38.0-47.0); HEMOGLOBIN 9.1 g/dL (12.6-16.3)
[2017-01-23] MEDS: ACETAMINOPHEN 325 MG TAB PO PRN ×2 (01:39→18:59)
[2017-01-23 05:15] LABS: HEMATOCRIT 28.5 % (38.0-47.0); HEMOGLOBIN 9.4 g/dL (12.6-16.3)
[2017-01-23 05:40] LABS: ALBUMIN 3.3 g/dL (3.5-5.0); BILIRUBIN,TOTAL 1.2 mg/dL (0.1-1.4); BILIRUBIN-CONJUGATED 0.5 mg/dL (0.0-0.5); BILIRUBIN-UNCONJUGATED 0.7 mg/dL (0.0-1.1)
[2017-01-23] MEDS ORDERED: CLOPIDOGREL BISULFATE 75 MG TAB PO SCH (09:00)
--- NOTE | 2017-01-23 09:07 | PDINTPN ---
Radiology Technician Progress Note Assessment/Plan: Assessment/Plan: * Acute respiratory failure-markedly improved * Pulmonary edema * GI bleed * Anemia-hemoglobin and hematocrit * Congestive heart failure * Peptic ulcer disease * Retention * Disposition-likely okay for transfer to the floor Subjective: Resting comfortably. Breathing easily. Objective: Vital Signs Temp Pulse Resp BP Pulse Ox 36.6 C 75 22 H 127/52 H 96 01/23/17 05:00 01/23/17 07:00 01/23/17 07:00 01/23/17 07:00 01/23/17 07:00 Laboratory Results 01/23/17 04:55 01/22/17 05:05 01/22/17 01/23/17 01/24/17 05:59 05:59 05:59 Intake Total 2636 1000 Output Total 2200 2275 Balance 436 -1275 Physical Exam - Physical Exam General Appearance: alert, no apparent distress EENT: PERRL/EOMI, normal ENT inspection, pharynx normal, TMs normal Neck: non-tender, full range of motion, supple, normal inspection Respiratory: rales (Few), No respiratory distress, No wheezing Cardiac/Chest: normal peripheral pulses, systolic murmur Peripheral Pulses: 2+: carotid (R), carotid (L), femoral (R), femoral (L), dorsalis-pedis (R), dorsalis-pedis (L) Abdomen: normal bowel sounds, non-tender, soft Pelvic Exam: deferred Rectal: deferred Skin: normal color, warm/dry Extremities: normal range of motion, non-tender, normal inspection, normal capillary refill ICD10 Worksheet Patient Problems: Problems Problem Status Onset Pulmonary edema Acute Severe anemia Acute Severe mitral regurgitation Acute
--- NOTE | 2017-01-23 09:29 | SOAPPROG ---
SOAP Progress Note Assessment/Plan: Assessment: 1. Anemia- normocytic and per family report chronic (baseline hgb 8-9 according to her son) 2. Melena 3. CHF 4. Elevated LFTs Plan: 1. No further melena 2. Hct stable after transfusion 3. Needs EGD and Colonoscopy for further evaluation but not urgent and family would like to have this done in [place] where her daughter lives. 4. Daily PPI 5. ADAT 6. Elevated transaminases may be due to ischemic liver injury in setting of hepatic steatosis. 7. U/S without ductal dilation of focal liver lesion 8. Will f/u on Hep B/C serologies. 9. Will need to monitor LFTs for improvement as if ischemic should improve steadily fairly rapidly (5-7 days). 10. There may be another underlying liver illness, like autoimmune hepatitis but this can be evaluated as outpatient better. 11. Will sign off. Please call back if patient and family desire to have GI w/u done during this hospitalization or if there is further bleeding. 01/23/17 09:31 Subjective: Confused and sleepy today No melena No hematemesis Eating some but not great. No abdominal pain or dysphagia. Objective: Vital Signs Temp Pulse Resp BP Pulse Ox 36.6 C 76 20 140/52 H 96 01/23/17 05:00 01/23/17 08:00 01/23/17 08:00 01/23/17 08:00 01/23/17 08:00 Laboratory Results 01/23/17 04:55 01/22/17 05:05 01/22/17 01/23/17 01/24/17 05:59 05:59 05:59 Intake Total 2636 1000 Output Total 2200 2275 Balance 436 -1275 Physical Exam - Physical Exam General Appearance: no apparent distress EENT: normal ENT inspection Neck: supple Respiratory: lungs clear Cardiac/Chest: regular rate, rhythm, extra beats Abdomen: normal bowel sounds, soft, No organomegaly, No distended, No guarding, No rebound, No hernia, No mass Skin: normal color ICD10 Worksheet Patient Problems: Problems Problem Status Onset Pulmonary edema Acute Severe anemia Acute Severe mitral regurgitation Acute
[2017-01-23] MEDS: VITAMIN B COMPLEX 1 EA CAP/TAB PO SCH (10:01)
[2017-01-23] MEDS: LOSARTAN POTASSIUM 50 MG TAB PO SCH (10:01)
[2017-01-23] MEDS: amLODIPine BESYLATE 5 MG TAB PO SCH (10:01)
[2017-01-23] MEDS: PANTOPRAZOLE SODIUM 40 MG in NS 100 ML IV SCH (10:01)
[2017-01-23] MEDS: FUROSEMIDE 40 MG/4 ML VIAL IVP SCH ×2 (10:01→15:58)
--- NOTE | 2017-01-23 16:17 | HOSPPROG ---
Hospitalist Progress Note Assessment/Plan: 76 yo F w h/o gewrd admitted w cp, recent h/o melena and acute blood loss anemia anemia: presumed gi losses on bid ppi hold plavix GI has seen; warrants endoscopy to further eval sounds like plan is for outpt endoscopy, which is reasonable if hct stable follow hct daily CV: NSTEMI suspected 2/2 to anemia follow trop to peak- repeat now chronicity og LBBB unknown hold antiplatelets given above echo reordered NSVT: limited amount follow await echo acute chf: suspect acute dCHF given severe anemia diurese down 4 kg still w 02 requirement elevated LFT's: ? shock non obstructive u/s w fatty liver starting to trend down dispo: full code proph: scd's Subjective: case d/w dr manley. hct stable Objective: Vital Signs Temp Pulse Resp BP Pulse Ox 36.9 C 85 25 H 137/54 H 90 L 01/23/17 10:56 01/23/17 10:56 01/23/17 10:56 01/23/17 10:56 01/23/17 10:56 Laboratory Results 01/23/17 04:55 01/22/17 05:05 01/22/17 01/23/17 01/24/17 05:59 05:59 05:59 Intake Total 2636 1000 Output Total 2200 2275 Balance 436 -1275 - Physical Exam Constitutional: no apparent distress, appears nourished Eyes: PERRL, anicteric sclera Ears, Nose, Mouth, Throat: moist mucous membranes, hearing normal Cardiovascular: regular rate and rhythym, no murmur, rub, or gallop Respiratory: no respiratory distress, no rales or rhonchi Gastrointestinal: normoactive bowel sounds, soft, non-tender abdomen Genitourinary: no bladder fullness, No lala in urethra Skin: warm, normal color Musculoskeletal: full muscle strength Neurologic: AAOx3, sensation intact bilaterally ICD10 Worksheet Patient Problems: Problems Problem Status Onset Pulmonary edema Acute Severe anemia Acute Severe mitral regurgitation Acute
[2017-01-23 16:28] LABS: HEMATOCRIT 29.9 % (38.0-47.0); HEMOGLOBIN 9.8 g/dL (12.6-16.3)
--- NOTE | 2017-01-23 18:24 | ECHO ---
[email or web address] [address] [address] Main: [phone] Fax: Transthoracic Echocardiogram Name: TIKI WHEELER MR#: [id number] Study Date: 01/21/2017 Study Time: 09:13 PM Date of : 1940 Age: 76 year(s) Height: ( ) Weight: ( ) BSA: Gender: Female Examination: Echo Indication: Image Quality: Contrast: Requested by: Fern Mckeon BP: / Heart Rate: Rhythm: Indication: Procedure Staff Farm Machinery Mechanic: Armida Hyatt Reading Physician: Reji Brown Requesting Provider: Fern Mckeon Conclusions: Borderline concentric LV hypertrophy. Low normal left ventricular systolic function. The ejection fraction is visually estimated to be 50 %. Mildly dilated right ventricle. Mildly reduced RV function. Flattened intrventricular septum consistent with RV volume/pressure overload. The left atrium is moderately dilated. The right atrium is moderately dilated. There is mild thickening of the mitral valve leaflets. Moderate to severe mitral regurgitation. Moderate to severe tricuspid valve regurgitation. The pulmonary artery pressure is severely increased. Right side pleural effusion. Measurements: Chambers Valvular Assessment AV/MV Valvular Assessment TV/PV Normal Normal Normal Name Value Range Name Value Range Name Value Range Ao Jayleen (MM): 3.0 cm (2.2 cm-3.7 AV Vmax: 1.37 m/s (1 m/s-1.7 TR Vmax: 4.18 mm/s ( - ) cm) m/s) TR PGmax: 70 mmHg ( - ) IVSd (2D): 0.9 cm (0.6 cm-1.1 AV maxP mmHg ( - ) syst. PAP: 80 mmHg ( - ) cm) LVOT Vmax: 1.06 m/s (0.7 m/s-1.1 PV Vmax: 1.00 m/s (0.6 m/s-0.9 LVDd (2D): 5.1 cm (3.9 cm-5.3 m/s) m/s) cm) FRANCISCO J (Vmax): 2.4 cm2 ( - ) PV PGmax: 4 mmHg ( - ) LVDs (2D): 3.7 cm (2.1 cm-4 AR (PHT): 287 ms ( - ) cm) MV E Vmax: 0.95 m/s ( - ) LVPWd (2D): 1.0 cm ( - ) MV A Vmax: 1.13 m/s ( - ) LVOTd 2.0 cm 2.0 cm mm MV E/A: 0.84 ( - ) LVEF (BP): 48 % (>=55 %) MV maxP mmHg ( - ) Visual EF: 50 % MV meanP mmHg ( - ) Patient: TIKI WHEELER Study Date: 01/21/2017 Page 1 of 2 09:13 PM RVDd(2D): 4.0 cm (1.9 cm-3.8 cmmm) Continued Measurements: Chambers Valvular Assessment AV/MV Valvular Assessment TV/PV Name Value Name Value Name Value LADs Lon.5 cm MV Annulus: 3.3 cm CVP (est.): 10 mmHg LA Area: 29.1 cm2 MV E/E' Lateral: 12.10 LA Volume: 104 ml MV VTI: 9.67 cm TAPSE: 1.6 cm MR Vena Contracta: 0.7 cm MR ERO: 0.3 cm2 MR PISA radius: 8 mm MR Reg. Volume: 46 ml MR Reg. Fraction: 55 % AR Vmax: 3.79 cm/s Additional Vessels Name Value Ao Ascendin.1 cm Findings: Left Ventricle: Normal size left ventricle. Borderline concentric LV hypertrophy. Low normal left ventricular systolic function. The ejection fraction is visually estimated to be 50 %. Right Ventricle: Mildly dilated right ventricle. Mildly reduced RV function. Flattened intrventricular septum consistent with RV volume/pressure overload. Left Atrium: The left atrium is moderately dilated. Right Atrium: The right atrium is moderately dilated. Mitral Valve: The mitral valve is normal in appearance. There is mild thickening of the mitral valve leaflets. Moderate to severe mitral regurgitation. Aortic Valve: The aortic valve is tri-leaflet. Mild aortic valve regurgitation is present. Tricuspid Valve: The tricuspid valve appears normal. Moderate to severe tricuspid valve regurgitation. The pulmonary artery pressure is severely increased. Pulmonic Valve: The pulmonic valve is normal in appearance and function. Mild pulmonic valve regurgitation is noted. Aorta: No dilatation of the aorta. Pericardium: No pericardial effusion. Right side pleural effusion. (No Signature Object) Patient: TIKI WHEELER Study Date: 01/21/2017 Page 2 of 2 09:13 PM [id number]
--- NOTE | 2017-01-23 18:28 | ECHO ---
[email or web address] [address] [address] Main: [phone] Fax: Transthoracic Echocardiogram Name: TIKI WHEELER MR#: [id number] Study Date: 01/23/2017 Study Time: 05:22 PM Date of : 1940 Age: 76 year(s) Height: 157.5 cm (62 in.) Weight: 60.33 kg (133 lb.) BSA: 1.61 m2 Gender: Female Examination: Echo Indication: Image Quality: Contrast: Requested by: Miguelito Galvan BP: 152 mmHg/68 mmHg Heart Rate: Rhythm: Left bundle branch block Indication: Procedure Staff Wood Repatcher: John Odell Reading Physician: Reji Brown Requesting Provider: Conclusions: Normal global systolic LV function. The ejection fraction is visually estimated to be 65 %. There is paradoxial septal wall motion consistent with Left Bundle Branch Block. The left atrium is severely dilated. The right atrium is moderately to severely dilated. Mild to moderate mitral regurgitation. Mild tricuspid regurgitation is present. The pulmonary artery pressure is moderately increased. Compared to echo of 01/21/2017, today's echo showed a change in RVSP is lower and MR and TR are less severe. Measurements: Chambers Valvular Assessment AV/MV Valvular Assessment TV/PV Normal Normal Normal Name Value Range Name Value Range Name Value Range IVSd (2D): 1.1 cm (0.6 cm-1.1 AV Vmax: 1.34 m/s (1 m/s-1.7 TR Vmax: 3.60 mm/s ( - ) cm) m/s) TR PGmax: 52 mmHg ( - ) LVDd (2D): 5.0 cm (3.9 cm-5.3 AV maxP mmHg ( - ) syst. PAP: 57 mmHg ( - ) cm) LVOT Vmax: 0.94 m/s (0.7 m/s-1.1 PV Vmax: 1.40 m/s (0.6 m/s-0.9 LVDs (2D): 3.4 cm (2.1 cm-4 m/s) m/s) cm) FRANCISCO J (Vmax): 2.2 cm2 ( - ) PV PGmax: 8 mmHg ( - ) LVPWd (2D): 1.2 cm ( - ) MV E Vmax: 0.87 m/s ( - ) LVOTd 2.0 cm 2.0 cm mm MV A Vmax: 0.71 m/s ( - ) LVEF (BP): 60 % (>=55 %) MV E/A: 1.23 ( - ) Visual EF: 65 % MV meanP mmHg ( - ) Continued Measurements: Chambers Valvular Assessment AV/MV Valvular Assessment TV/PV Patient: TIKI WHEELER Study Date: 01/23/2017 Page 1 of 2 05:22 PM Name Value Name Value Name Value LADs Lon.4 cm MV Annulus: 3.1 cm CVP (est.): 5 mmHg LA Area: 27.0 cm2 MV E/E' Septal: 20.90 LA Volume: 97 ml MV E/E' Lateral: 14.50 LA Volume Index: 60.2 ml/m2 MV VTI: 22.00 cm MR ERO: 0.2 cm2 MR PISA radius: 6 mm MR Reg. Volume: 24 ml MR Reg. Fraction: 14 % Findings: Left Ventricle: Normal size left ventricle. Normal global systolic LV function. The ejection fraction is visually estimated to be 65 %. There is paradoxial septal wall motion consistent with Left Bundle Branch Block. Right Ventricle: Normal RV function. Left Atrium: The left atrium is severely dilated. Right Atrium: The right atrium is moderately to severely dilated. Mitral Valve: The mitral valve is normal in appearance. Mild to moderate mitral regurgitation. Aortic Valve: The aortic valve is normal in appearance and function. The aortic valve is tri-leaflet. Tricuspid Valve: The tricuspid valve appears normal. Mild tricuspid regurgitation is present. The pulmonary artery pressure is moderately increased. Pulmonic Valve: The pulmonic valve is normal in appearance and function. Trivial pulmonic valve regurgitation. Aorta: The aorta is normal. Pericardium: No pericardial effusion. (No Signature Object) Patient: TIKI WHEELER Study Date: 01/23/2017 Page 2 of 2 05:22 PM [id number]
[2017-01-24 02:08] LABS: HEMATOCRIT 29.8 % (38.0-47.0)
[2017-01-24 08:36] LABS: ABSOLUTE NRBC COUNT 0.43 10^3/uL (0-0.01); ADD DIFF? YES; ADD MORPH? YES; ADD SCAN? YES; ATYPICAL LYMPHOCYTE FLAG 40 (0-99); FRAGMENT RBC FLAG 20 (0-99); HEMATOCRIT 30.5 % (38.0-47.0); HEMOGLOBIN 10.2 g/dL (12.6-16.3); LIPEMIA HEMOLYSIS FLAG 80 (0-99); MEAN CELL HEMOGLOBIN 30.9 pg (27.9-34.1); MEAN CELL HEMOGLOBIN CONCENTR. 33.4 g/dL (32.4-36.7); MEAN CELL VOLUME 92.4 fL (81.5-99.8); PLATELET CLUMPS FLAG 0 (0-99); PLATELET COUNT 69 10^3/uL (150-400); RED CELL DISTRIBUTION WIDTH 17.9 % (11.5-15.2)
[2017-01-24 08:44] LABS: LEFT SHIFT FLG 110 (0-99); NRBC-AUTO% 3.8 % (0.0-0.2)
[2017-01-24 08:46] LABS: ANION GAP 12 mEq/L (8-16); CALCIUM 8.6 mg/dL (8.5-10.4); CARBON DIOXIDE 27 mEq/l (22-31); CHLORIDE 101 mEq/L (97-110); CREATININE 0.8 mg/dL (0.6-1.0); GLOMERULAR FILTRATION RATE > 60; GLUCOSE 146 mg/dL (70-100); SODIUM 140 mEq/L (134-144)
[2017-01-24 08:56] LABS: TROPONIN I 0.109 ng/mL (0.000-0.034)
[2017-01-24 09:34] LABS: ALBUMIN 3.3 g/dL (3.5-5.0); BILIRUBIN,TOTAL 0.9 mg/dL (0.1-1.4); BILIRUBIN-CONJUGATED 0.5 mg/dL (0.0-0.5); BILIRUBIN-UNCONJUGATED 0.4 mg/dL (0.0-1.1); TOTAL PROTEIN 9.2 g/dL (6.3-8.2)
[2017-01-24] MEDS: VITAMIN B COMPLEX 1 EA CAP/TAB PO SCH (09:39)
[2017-01-24] MEDS: PANTOPRAZOLE SODIUM 40 MG TAB PO SCH (09:40)
[2017-01-24] MEDS: FUROSEMIDE 40 MG/4 ML VIAL IVP SCH ×3 (09:40→15:04)
[2017-01-24] MEDS: LOSARTAN POTASSIUM 50 MG TAB PO SCH (09:40)
[2017-01-24] MEDS: ACETAMINOPHEN 325 MG TAB PO PRN (09:40)
[2017-01-24] MEDS: amLODIPine BESYLATE 5 MG TAB PO SCH (09:40)
[2017-01-24] MEDS ORDERED: POTASSIUM CL 20 MEQ TAB PO ONE (10:45)
[2017-01-24] MEDS ORDERED: POTASSIUM CL 20 MEQ/15 ML UDCUP PO ONE (13:32)
--- NOTE | 2017-01-24 13:35 | HOSPPROG ---
Hospitalist Progress Note Assessment/Plan: 76 yo F w h/o gerd admitted w cp, recent h/o melena and acute blood loss anemia anemia: presumed gi losses on bid ppi hold plavix GI has seen; warrants endoscopy to further eval sounds like plan is for outpt endoscopy, which is reasonable if hct stable (it has been thus far) follow hct daily CV: NSTEMI suspected 2/2 to anemia follow trop to peak- repeat now chronicity og LBBB unknown hold antiplatelets given above echo reordered NSVT: limited amount follow await echo acute chf: suspect acute dCHF given severe anemia diurese down 4 kg still w 02 requirement elevated LFT's: ? shock non obstructive u/s w fatty liver starting to trend down dispo: full code proph: scd's Subjective: cxr w decreased pulm edema (interp by me). tele: no events (interp by me). family notes weakness w ambulation Objective: Vital Signs Temp Pulse Resp BP Pulse Ox 36.1 C 83 16 128/55 H 94 01/24/17 11:32 01/24/17 11:32 01/24/17 11:32 01/24/17 11:32 01/24/17 11:32 Laboratory Results 01/24/17 08:17 01/24/17 08:17 01/23/17 01/24/17 01/25/17 05:59 05:59 05:59 Intake Total 1000 750 Output Total 2275 2500 Balance -1275 -1750 - Physical Exam Constitutional: no apparent distress, appears nourished Eyes: PERRL, anicteric sclera Ears, Nose, Mouth, Throat: moist mucous membranes, hearing normal Cardiovascular: regular rate and rhythym, no murmur, rub, or gallop Respiratory: no respiratory distress, inspiratory crackles, No no rales or rhonchi Gastrointestinal: normoactive bowel sounds, soft, non-tender abdomen, No mccann' s sign Genitourinary: no bladder fullness, No lala in urethra Skin: warm, normal color Musculoskeletal: full muscle strength Neurologic: AAOx3, sensation intact bilaterally Psychiatric: interacting appropriately Lymph, Heme, Immunologic: no cervical LAD ICD10 Worksheet Patient Problems: Problems Problem Status Onset Pulmonary edema Acute Severe anemia Acute Severe mitral regurgitation Acute
--- NOTE | 2017-01-24 15:24 | ASMTCMCOM ---
CM Note CM Note Notes: Reviewed chart re: d/c poc, pt's progress. Per MD notes, pt will likely need an endoscopy for further eval as an outpt; awaiting results of echo; still requiring oxygen. Anticipate pt will d/c home w/ family support when medically stable. CM will cont to follow for possible needs. Date Signed: 01/24/2017 03:23 PM Electronically Signed By:Paty Felix RN
[2017-01-24 15:56] LABS: SCAN POSITIVE
[2017-01-24 16:00] LABS: HYPOCHROMIA 1+; PLATELET ESTIMATE DECREASED (ADEQ)
[2017-01-25 06:40] LABS: ALANINE AMINOTRANSFERASE 713 IU/L (9-52); ALBUMIN 3.2 g/dL (3.5-5.0); ALKALINE PHOSPHATASE 85 IU/L (38-126); ANION GAP 15 mEq/L (8-16); ASPARTATE AMINOTRANSFERASE 299 IU/L (14-46); BILIRUBIN,TOTAL 0.8 mg/dL (0.1-1.4); BILIRUBIN-CONJUGATED 0.5 mg/dL (0.0-0.5); BILIRUBIN-UNCONJUGATED 0.3 mg/dL (0.0-1.1); CALCIUM 8.4 mg/dL (8.5-10.4); CARBON DIOXIDE 19 mEq/l (22-31); CHLORIDE 107 mEq/L (97-110); CREATININE 0.8 mg/dL (0.6-1.0); GLOMERULAR FILTRATION RATE > 60; GLUCOSE 108 mg/dL (70-100); POTASSIUM 3.9 mEq/L (3.5-5.2); SODIUM 141 mEq/L (134-144)
[2017-01-25 08:35] VITALS: RESP 18
[2017-01-25] MEDS ORDERED: POTASSIUM CL 20 MEQ PKT PO SCH (09:00)
[2017-01-25] MEDS ORDERED: CLOPIDOGREL BISULFATE 75 MG TAB PO SCH (09:00)
[2017-01-25] MEDS: amLODIPine BESYLATE 5 MG TAB PO SCH (09:17)
[2017-01-25] MEDS: FUROSEMIDE 40 MG/4 ML VIAL IVP SCH ×2 (09:17→15:09)
[2017-01-25] MEDS: PANTOPRAZOLE SODIUM 40 MG TAB PO SCH (09:17)
[2017-01-25] MEDS: LOSARTAN POTASSIUM 50 MG TAB PO SCH (09:18)
[2017-01-25] MEDS: VITAMIN B COMPLEX 1 EA CAP/TAB PO SCH (09:18)
[2017-01-25 12:28] VITALS: BP 116/60; PULSE 82; TEMP 99
--- NOTE | 2017-01-25 14:31 | HOSPPROG ---
Hospitalist Progress Note Assessment/Plan: 76 yo F w h/o gerd admitted w cp, recent h/o melena and acute blood loss anemia anemia: presumed gi losses on bid ppi plavix restarted plavix GI has seen; warrants endoscopy to further eval sounds like plan is for outpt endoscopy, which is reasonable if hct stable (it has been thus far) follow hct daily CV: NSTEMI suspected 2/2 to anemia trop peaked at .26 chronicity og LBBB unknown hold antiplatelets given above echo improved NSVT: limited amount follow await echo ef >35%; has resolved acute chf: suspect acute dCHF given severe anemia diurese down 4 kg still w 02 requirement elevated LFT's: ? shock non obstructive u/s w fatty liver much improved dispo: home today > 30 minutes proph: scd's Subjective: feels much better. no events tele. lft's improving Objective: Vital Signs Temp Pulse Resp BP Pulse Ox 37.2 C 82 18 116/60 99 01/25/17 12:27 01/25/17 12:27 01/25/17 12:27 01/25/17 12:27 01/25/17 12:27 Laboratory Results 01/24/17 08:17 01/25/17 04:50 01/24/17 01/25/17 01/26/17 05:59 05:59 05:59 Intake Total 750 810 Output Total 2500 800 Balance -1750 10 - Physical Exam Constitutional: no apparent distress, appears nourished Eyes: PERRL, anicteric sclera Ears, Nose, Mouth, Throat: moist mucous membranes, hearing normal Cardiovascular: regular rate and rhythym, no murmur, rub, or gallop Respiratory: no respiratory distress, no rales or rhonchi Gastrointestinal: normoactive bowel sounds, soft, non-tender abdomen Genitourinary: no bladder fullness, No lala in urethra Skin: warm, normal color Musculoskeletal: full muscle strength, no muscle tenderness Neurologic: AAOx3 Psychiatric: interacting appropriately ICD10 Worksheet Patient Problems: Problems Problem Status Onset Pulmonary edema Acute Severe anemia Acute Severe mitral regurgitation Acute
[2017-01-25 14:53] VITALS: O2SAT 79
--- NOTE | 2017-01-25 15:29 | GDS ---
[f rep st] DISCHARGE SUMMARY DISCHARGE DIAGNOSES: 1. Acute hepatitis with fatty liver presumed secondary to ischemic hepatitis, now improving. 2. Acute blood loss anemia. Presenting with a hemoglobin of 5.6, in the setting of melena. 3. Non ST-elevation myocardial infarction felt secondary to type 2 myocardial infarction from demand. 4. Acute kidney injury. 5. Pulmonary edema with acute diastolic heart failure. 6. Hypoxemic respiratory failure, improved. 7. Thrombocytopenia. 8. Gastroesophageal reflux disease. HISTORY: Please see the admission history and physical by Dr. Mary Gibbs when the patient presented with shortness of breath, nausea, vomiting, and hematemesis. She had an echocardiogram that showed a slightly depressed EF with right RV pressure overload. She was ruled out for PE. She had pulmonary edema. Her LFTs were markedly elevated. Hepatic ultrasound showed steatosis without portal vein or hepatic vein thrombosis. The patient was transfused. Given her modestly elevated troponin of 0.15, and stability of hct w transfusion , it was felt safest to defer endoscopy to the outpatient setting. This is planned as an outpatient in [place], where her daughter lives. The patient has been transfused a total of 3 units of blood with stable blood level since. She has not had further melena. She is eating well. She takes a PPI as an outpatient. It is not felt consistent with varicocele bleed. She had acute kidney injury on presentation that trended down. Her initial transaminases were elevated in the high 100s. They are trending down today. The patient had volume overload in the process of setting of resuscitation, and received IV diuresis for several days, with about a 6 kg loss of weight. The patient is being weaned off oxygen at this time. The patient is from [facility], and she is traveling here with family. She plans to return to [facility]. They are heading this weekend to see a family member in [place]. She is urged to get an outpatient endoscopy. Discharge medicines are unchanged, and include Plavix and PPI. She is not on a statin. I think it would be reasonable to consider this, though would wait for her liver injury to recover. /[id number]/MODL MTDD
[2017-01-25] MEDS ORDERED: PNEUMOC 13-VAL CONJ-DIP CRM/PF 0.5 ML SYR IM ONE (16:15)
--- NOTE | 2017-01-26 09:41 | ASDISCHSUM ---
Discharge Information Plan Status:Home with No Needs Medically Cleared to Leave:01/25/2017 Discharge Date:01/25/2017 07:39 PM CM D/C Disposition:Home, Routine, Self-Care ADT D/C Disposition:Home, Routine, Self-Care Projected Discharge Date:01/25/2017 12:00 AM Transportation at D/C:Family Discharge Delay Reason: Follow-Up Date:01/25/2017 12:00 AM Discharge Slot: Final Diagnosis: Placement Information Patient Contact Information Contact Name:GIULIANA Relationship:Nancy Address[address] [place] [address] Work Phone: City:[place] Alternate Phone: [facility]/Zip Code:[place] [address] Email: Financial Information Financial Class:Self-Pay Primary Plan Desc:SELF PAY Primary Plan Number: Secondary Plan Desc: Secondary Plan Number: Assessment Information [facility] Progress Note CM Note CM Note Notes: Chart reviewed. Am rounds. Patient is mainly [place] speaking and is here from [facility] visiting her grandson. Gastroenterology consulted, medical management recommended at this point. Grandson is proxy at this point in time. Discharge needs TBD. CM to follow. Date Signed: 01/22/2017 02:47 PM Electronically Signed By:Frances Newman RN [facility] CM Progress Note CM Note CM Note Notes: Reviewed chart re: d/c poc, pt's progress. Per MD notes, pt will likely need an endoscopy for further eval as an outpt; awaiting results of echo; still requiring oxygen. Anticipate pt will d/c home w/ family support when medically stable. CM will cont to follow for possible needs. Date Signed: 01/24/2017 03:23 PM Electronically Signed By:Paty Felix RN Intervention Information
== END 2017-01-25 19:39 | disposition home or self-care (01) | DRG 811 ==
LOC: F2N 23:07 → F2W 01-23 10:35
PROVIDERS: ADMIT Internal Medicine; ATTEND Internal Medicine
PROC: 30233N1 Transfusion of Nonautologous Red Blood Cells into Peripheral Vein, Percutaneous Approach (ICD-10-PCS; principal; 2017-01-21)
DX: D62 Acute posthemorrhagic anemia (principal); J96.01 Acute respiratory failure with hypoxia; I50.31 Acute diastolic (congestive) heart failure; B17.9 Acute viral hepatitis, unspecified; I11.0 Hypertensive heart disease with heart failure; I47.2 Ventricular tachycardia; K92.1 Melena; N17.9 Acute kidney failure, unspecified; I21.4 Non-ST elevation (NSTEMI) myocardial infarction; K76.0 Fatty (change of) liver, not elsewhere classified; E11.9 Type 2 diabetes mellitus without complications; K21.9 Gastro-esophageal reflux disease without esophagitis; E78.5 Hyperlipidemia, unspecified; I44.7 Left bundle-branch block, unspecified; D69.6 Thrombocytopenia, unspecified; Z87.11 Personal history of peptic ulcer disease; Z79.01 Long term (current) use of anticoagulants; Z79.84 Long term (current) use of oral hypoglycemic drugs
CPT/HCPCS: 83010-90; 96374; 97116-GP; 97161-GP; 97166-GO; G0009; G0472; J0696; J1940; J2405; P9016; P9021; Q9967